=== PATIENT | female | born 1940 ===

== ENCOUNTER 2021-04-03 18:26 | Emergency (ER) | payer SELFPAY ==
[~2021-04-03] VITALS: Ht 157.5 cm; Wt 63.6 kg
[2021-04-03 18:52] VITALS: BP 160/73
[2021-04-03] MEDS ORDERED: HYDROcodone/acetaminophen 5mg/325mg tablet PO ONE (20:10)
== END 2021-04-03 20:33 | disposition home or self-care (01) ==
LOC: ER 18:27
DX: S60.211A Contusion of right wrist, initial encounter (principal); S00.83XA Contusion of other part of head, initial encounter; S16.1XXA Strain of muscle, fascia and tendon at neck level, initial encounter; W20.8XXA Other cause of strike by thrown, projected or falling object, initial encounter; Y93.89 Activity, other specified; Y92.89 Other specified places as the place of occurrence of the external cause; Y99.8 Other external cause status
CPT/HCPCS: 29125; 73080; 73110; 99284